=== PATIENT | male | born 1965 | race Caucasian/White ===

== ENCOUNTER 2017-07-02 13:01 | Emergency (ER) | payer OTHER ==
[2017-07-02 14:35] VITALS: BP 155/88
== END 2017-07-02 15:12 | disposition home or self-care (01) ==
LOC: ED 13:01
DX: S61.210A Laceration without foreign body of right index finger without damage to nail, initial encounter (principal); W26.8XXA Contact with other sharp object(s), not elsewhere classified, initial encounter; Y93.89 Activity, other specified; Y99.8 Other external cause status; Y92.89 Other specified places as the place of occurrence of the external cause

== ENCOUNTER 2019-04-20 14:13 | Emergency (ER) | payer OTHER ==
[~2019-04-20] VITALS: Ht 172.7 cm; Wt 78.5 kg
[2019-04-20 14:24] VITALS: BP 156/88; Ht 172.7 cm; Wt 78.5 kg
== END 2019-04-20 16:16 | disposition home or self-care (01) ==
LOC: ED 14:13
DX: S01.81XA Laceration without foreign body of other part of head, initial encounter (principal); S06.0X1A Concussion with loss of consciousness of 30 minutes or less, initial encounter; W22.8XXA Striking against or struck by other objects, initial encounter; Y93.89 Activity, other specified; Y92.89 Other specified places as the place of occurrence of the external cause; Y99.8 Other external cause status
CPT/HCPCS: J2001